=== PATIENT | female | born 1945 | race Caucasian/White ===

== ENCOUNTER 2016-02-05 09:31 | Inpatient (IN) | payer OTHER, MEDICARE ==
[~2016-02-05] VITALS: Ht 167.6 cm; Wt 59.9 kg
--- NOTE | 2016-02-05 10:17 | ED GI/GU/ABDOMINAL COMPLAINT ---
History of Present Illness General Chief Complaint: Abdominal Pain/Flank Pain Stated Complaint: UPPER FLANK PAIN Source: patient, family Exam Limitations: no limitations Vital Signs & Intake/Output Vital Signs & Intake/Output Vital Signs Date Time Temp Pulse Resp B/P Pulse O2 O2 Flow FiO2 Ox Delivery Rate 02/04 1359 97.8 82 18 118/68 98 Room Air 02/04 1121 99.2 94 19 111/63 96 Room Air 02/04 1114 99.0 02/04 0947 99.0 94 20 108/65 95 Room Air Room Air Allergies Coded Allergies: NO KNOWN ALLERGIES (12/12/10) Reconcile Medications Cefpodoxime Proxetil 200 MG TABLET 1 TAB PO BID PNEUMOCOCCAL PNEUMONIA Lisinopril 10 MG TABLET 1 TAB PO DAILY HTN (Reported) Pravastatin Sodium 10 MG TABLET 1 TAB PO DAILY CHOL (Reported) Sertraline HCl (Zoloft) 100 MG TABLET 1 TAB PO DAILY ANXIETY (Reported) Triage Note: PT "I HAD THE GI BUG SINCE SUNDAY, STILL HAVE DIARRHEA IT'S ONGOING, NOT EATING, LAST NIGHT STARTED WITH LEFT UPPER BACK PAIN, HURTS WHEN TAKING DEEP BREATH". 96% ON ROOM AIR WHILE TALKING. EX-SMOKER. Triage Nurses Notes Reviewed? yes ? N Is pt currently ? No Onset: Abrupt Duration: day(s): (1) Timing: multiple episodes today Quality/Severity: moderate Location: ABDOMEN, NECK, CHEST Activities at Onset: none No Modifying Factors: none HPI: This is a 70-year-old female presents to the ER chief complaint of multiple complaints including left back pain, left chest pain, headache and diarrhea. She states her was sick with GI bug and sinusitis earlier in the week. She is having some diarrhea. Last night she couldn't sleep all night long because when she would turn in bed she had pain worse in her back and chest. She looked up online addiction might have pleurisy. Also complains of a severe sharp pain on bilateral temples. Denies any cough. She does feel short of breath. Denies any vomiting. Appetite has been very poor. She has been drinking a lot of water at home which was advised to her by her neighbor. Denies any recent travel. Sick contact is her as previously stated. Past History Travel History Traveled to [place] past 21 day No Medical History Any Pertinent Medical History? 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 No Review of Systems Review of Systems Constitutional: Reports: malaise. Denies: chills, fever. EENTM: Reports: no symptoms. Respiratory: Denies: cough, short of breath, sputum production. Cardiovascular: Reports: chest pain. GI: Reports: abdominal pain, diarrhea, nausea. Genitourinary: Reports: no symptoms. Musculoskeletal: Reports: no symptoms. Skin: Reports: no symptoms. Neurological/Psychological: Reports: headache. Hematologic/Endocrine: Denies: bruising, bleeding, polyuria, polydipsia. Immunologic/Allergic: Denies: splenectomy. All Other Systems: Reviewed and Negative Physical Exam Physical Exam General Appearance: well developed/nourished, alert, awake, anxious, mild distress Head: atraumatic, normal appearance, tenderness (OVER BILATERAL TEMPLES) Eyes: Bilateral: normal appearance, PERRL, EOMI. Ears, Nose, Throat, Mouth: hearing grossly normal, moist mucous membrane Neck: normal inspection, supple, full range of motion Respiratory: normal breath sounds, chest non-tender, no respiratory distress Cardiovascular: regular rate/rhythm Peripheral Pulses: 2+ radial (R), 2+ radial (L) Gastrointestinal: normal bowel sounds, soft, non-tender Back: normal inspection, normal range of motion Extremities: normal range of motion Neurologic/Psych: no motor/sensory deficits, awake, alert, oriented x 3, normal gait Skin: intact, normal color, warm/dry Core Measures ACS in differential dx? No Severe Sepsis Present: No Septic Shock Present: No Progress Differential Diagnosis: AMI, pneumonia, pneumothorax, pleurisy, shingles, URI, PE, temporal arteritis Plan of Care: Orders Procedure Date/time Status Patient Data 02/04 1509 Active BASIC METABOLIC PANEL 02/04 1452 Active Admit to inpatient 02/04 1451 Active Intake & Output 02/04 1115 Active RAPID VIRAL INFLUENZA A 02/04 1037 Complete URINALYSIS 02/04 1037 Active TROPONIN LEVEL 02/04 1037 Complete WESTERGREN SED RATE 02/04 1037 Complete D-DIMER 02/04 1037 Complete COMPREHENSIVE METABOLIC PANEL 02/04 1037 Complete CBC WITHOUT DIFFERENTIAL 02/04 1037 Complete EKG 02/04 1037 Active Current Medications Sig/Jenny Start time Last Medication Dose Stop Time Status Admin Dexamethasone 4 MG DAILY 02/05 1000 UNVr (Decadron) Dextrose/Water 50 ML (D5W) Laboratory Tests 02/05/16 1105: Anion Gap 15, Estimated GFR > 60, BUN/Creatinine Ratio 27.1 H, Glucose 128 H, Calcium 8.9, Total Bilirubin 1.2, AST 20, ALT 33, Alkaline Phosphatase 97, Troponin I < 0.01, Total Protein 6.3, Albumin 3.6, Globulin 2.7, Albumin/ Globulin Ratio 1.3, D-Dimer 583 H, CBC w Diff MAN DIFF ORDERED, RBC 3.48 L, MCV 96.1, MCH 32.4 H, RDW 13.3, MPV 8.7, Gran % 92.4 H, Lymphocytes % 3.3 L, Monocytes % 4.1, Eosinophils % 0.1, Basophils % 0.1, Absolute Granulocytes 17.2 H, Segmented Neutrophils 82 H, Band Neutrophils 8 H, Absolute Lymphocytes 0.6 L, Lymphocytes 4 L, Monocytes 6, Absolute Monocytes 0.8 H, Absolute Eosinophils 0, Absolute Basophils 0, Normocytic RBCs VERIFIED, Normochromic RBCs VERIFIED, PUBS MCHC 33.7, ESR Westergren 128 H Diagnostic Imaging: Viewed by Me: CT Scan. Discussed w/RAD: CT Scan. Radiology Impression: EXAM TYPE: CAT - CTA CHEST EXAMINATION: CT ANGIOGRAM OF THE CHEST WITH CONTRAST (CT PULMONARY ANGIOGRAM FOR PE) CLINICAL INFORMATION: Left-sided pleuritic chest pain. Evaluate for pulmonary embolism. COMPARISON: CXR from 12/12/2010 TECHNIQUE: Prior to contrast administration, noncontrast localization images were obtained. Subsequently, multidetector volumetric imaging was performed from the thoracic inlet to below the diaphragms following the administration of 95 mL of Optiray 320 intravenous contrast. No contrast reaction reported. Sagittal, coronal, and MIP oblique sagittal reformatted images were obtained on the CT workstation, uploaded to PACS, and reviewed. Total exam dose-length product 328 mGy-cm FINDINGS: QUALITY OF STUDY/CONTRAST BOLUS: Satisfactory. PULMONARY ARTERIES: Pulmonary arteries are normal in caliber and there are no filling defects within the main, lobar or segmental vessels. THORACIC AORTA: Mild atherosclerotic calcification of the thoracic aorta without aneurysm or dissection. LUNGS AND PLEURA: Trachea and central airways are widely patent and normal in caliber. There is bronchial wall thickening in both lungs. There were several small (< 0.4 cm) noncalcified nodules in the right upper lobe (for example, image 104, series 4). Also, there are small nodules in both lower lobes, largest of the right lower lobe measuring 0.4 cm (image 349, series 4). There is a 0.3 cm calcified granuloma in the right lower lobe, as well (image 314, series 4). Within the left upper lobe and superior lingula extending along the major fissure, there is a broad area of consolidation with surrounding groundglass attenuation. This occupies an area measuring up to 5-6 cm AP and 10 cm long, and there is no central cavitary change. There is a trace left pleural effusion. MEDIASTINUM: The heart size is normal. No pericardial effusion. The thyroid gland and esophagus are unremarkable. No evidence of septal bowing or right heart strain. LYMPHATICS: No axillary lymphadenopathy. At the left hilum, a lymph node measures approximately 1 cm AP dimension (image 211, series 4). There are clustered subcentimeter sized lymph nodes within the mediastinum. UPPER ABDOMEN: Gallbladder is surgically absent. Adrenal glands are normal. There are a few scattered diverticula of the visualized colon. No reflux of contrast into the hepatic veins to suggest elevated right heart pressures. OSSEOUS STRUCTURES: No acute or suspicious osseous abnormality. There is an L2 hemangioma. IMPRESSION: 1. No pulmonary embolism. 2. Left upper lobe pneumonia and trace left pleural effusion. Recommend radiographic follow-up to ensure improvement/resolution of disease. 3. Small, scattered pulmonary nodules are likely postinflammatory, largest measuring up to 0.4 cm. Initial ED EKG: NSR Departure Departure Time of Disposition: 1451 Disposition: STILL A PATIENT Condition: Stable Clinical Impression Primary Impression: Hypokalemia Secondary Impressions: Pneumonia Referrals: CHRISTOPHER WALLACE MD (PCP/Family) Referred to [facility] as new patient No Departure Forms: Customer Survey General Discharge Information Prescriptions: Current Visit Scripts Cefpodoxime Proxetil 1 TAB PO BID #10 TAB Admission Note Spoke With: CANDIDO TAVERAS MD Documentation of Exam: Documentation of any treatments & extenuating circumstances including Concerns Regarding Discharge (functional status, medication knowledge or non-compliance, living conditions, etc.) that warrant an admission rather than observation: [IV ABX, PAIN CONTORL, POTASSIUM REPLETION, MONITOR ELECTROLYTES, MONITOR I/O, IV ABX, F/U BLOOD CULTURES]
[2016-02-05 11:33] LABS: ABSOLUTE BASOPHIL COUNT 0 /CUMM (0.0-0.2); ABSOLUTE EOSINOPHIL COUNT 0 /CUMM (0.0-0.7); ABSOLUTE GRANULOCYTE CT 17.2 /CUMM (1.4-6.5); ABSOLUTE LYMPH COUNT 0.6 /CUMM (1.2-3.4); ABSOLUTE MONOCYTE COUNT 0.8 /CUMM (0.10-0.60); BASOPHIL % 0.1 % (0.0-2.0); EOSINOPHIL % 0.1 % (0-5); GRANULOCYTE % 92.4 % (42.2-75.2); HEMATOCRIT 33.5 % (37-47); MEAN CORPUSCULAR HGB 32.4 PG (27.0-31.0); MEAN CORPUSCULAR HGB CONC 33.7 G/DL (33.0-37.0); MEAN CORPUSCULAR VOLUME 96.1 FL (81.0-99.0); MEAN PLATELET VOLUME 8.7 FL (7.4-10.4); PLATELET COUNT 182 /CUMM (130-400); RBC DISTRIBUTION WIDTH 13.3 % (11.5-14.5); RED BLOOD CELL CT 3.48 /CUMM (4.20-5.40); WHITE BLOOD CELL COUNT 18.6 /CUMM (4.8-10.8)
[2016-02-05] MEDS ORDERED: PRAVASTATIN SOD10 M2 PO (14:30)
[2016-02-05] MEDS ORDERED: LISINOPRIL10 M1 PO (14:30)
--- NOTE | 2016-02-05 14:43 | CT SCAN REPORT ---
EXAMINATION: CT ANGIOGRAM OF THE CHEST WITH CONTRAST (CT PULMONARY ANGIOGRAM FOR PE) CLINICAL INFORMATION: Left-sided pleuritic chest pain. Evaluate for pulmonary embolism. COMPARISON: CXR from 12/12/2010 TECHNIQUE: Prior to contrast administration, noncontrast localization images were obtained. Subsequently, multidetector volumetric imaging was performed from the thoracic inlet to below the diaphragms following the administration of 95 mL of Optiray 320 intravenous contrast. No contrast reaction reported. Sagittal, coronal, and MIP oblique sagittal reformatted images were obtained on the CT workstation, uploaded to PACS, and reviewed. Total exam dose-length product 328 mGy-cm FINDINGS: QUALITY OF STUDY/CONTRAST BOLUS: Satisfactory. PULMONARY ARTERIES: Pulmonary arteries are normal in caliber and there are no filling defects within the main, lobar or segmental vessels. THORACIC AORTA: Mild atherosclerotic calcification of the thoracic aorta without aneurysm or dissection. LUNGS AND PLEURA: Trachea and central airways are widely patent and normal in caliber. There is bronchial wall thickening in both lungs. There were several small (< 0.4 cm) noncalcified nodules in the right upper lobe (for example, image 104, series 4). Also, there are small nodules in both lower lobes, largest of the right lower lobe measuring 0.4 cm (image 349, series 4). There is a 0.3 cm calcified granuloma in the right lower lobe, as well (image 314, series 4). Within the left upper lobe and superior lingula extending along the major fissure, there is a broad area of consolidation with surrounding groundglass attenuation. This occupies an area measuring up to 5-6 cm AP and 10 cm long, and there is no central cavitary change. There is a trace left pleural effusion. MEDIASTINUM: The heart size is normal. No pericardial effusion. The thyroid gland and esophagus are unremarkable. No evidence of septal bowing or right heart strain. LYMPHATICS: No axillary lymphadenopathy. At the left hilum, a lymph node measures approximately 1 cm AP dimension (image 211, series 4). There are clustered subcentimeter sized lymph nodes within the mediastinum. UPPER ABDOMEN: Gallbladder is surgically absent. Adrenal glands are normal. There are a few scattered diverticula of the visualized colon. No reflux of contrast into the hepatic veins to suggest elevated right heart pressures. OSSEOUS STRUCTURES: No acute or suspicious osseous abnormality. There is an L2 hemangioma. IMPRESSION: 1. No pulmonary embolism. 2. Left upper lobe pneumonia and trace left pleural effusion. Recommend radiographic follow-up to ensure improvement/resolution of disease. 3. Small, scattered pulmonary nodules are likely postinflammatory, largest measuring up to 0.4 cm.
--- NOTE | 2016-02-05 15:12 | History & Physical ---
JUHI SANTAMARIA,[facility] 02/05/16 1512: General Information and HPI MD Statement: I have seen and personally examined ZHEN LEZAMA and documented this H&P. The patient is a 70 year old F who presented with a patient stated chief complaint of left sided pleuritic chest pain. Source of Information: patient Exam Limitations: no limitations History of Present Illness: This is a 70-year-old female with past medical history of hypertension, lipidemia and anxiety who comes to the ER with chief complaint of left-sided pleuritic chest pain . As per patient she has been feeling weak and lethargic since . She had some difficulty going to sleep that night, later followed by feeling feverish and having chills, since yesterday she has been having difficulty breathing stating that she has pain in her left shoulder blade area more pronounced when she takes a deep breath, denies any cough, sputum production. She also reports having watery diarrhea, dry heaves, nausea but no vomiting. Her had similar illnesses lately and she feels that she is having similar symptoms. She also complained of having severe headache, which has resolved now, she attributes it to not having been able to sleep well for the last couple of nights. It has been low. She denies any dizziness, chest pain, palpitation, any urinary complaints, any recent travels. She does not have any recent history of hospitalization, recent history of bronchitis, pneumonia, she does not have had her PNA of flu shot. She is an ex-smoker, drinks wine daily,no illicit drug abuse. Allergies/Medications Allergies: Coded Allergies: NO KNOWN ALLERGIES (12/12/10) Home Med list Lisinopril 10 MG TABLET 1 TAB PO DAILY HTN (Reported) Pravastatin Sodium 10 MG TABLET 1 TAB PO DAILY CHOL (Reported) Sertraline HCl (Zoloft) 100 MG TABLET 1 TAB PO DAILY ANXIETY (Reported) Compliance With Home Meds: GOOD Past History Travel History Traveled to [place] past 21 day No Medical History Blood Transfusion Hx: No Neurological: NONE EENT: NONE Cardiovascular: hypertension, hyperlipidemia Respiratory: asthma Gastrointestinal: GERD Hepatic: NONE Renal: NONE Musculoskeletal: NONE Psychiatric: NONE Endocrine: NONE Blood Disorders: NONE Cancer(s): NONE 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 Home Who Do You Live With? spouse Services at Home: None Primary Language: Algerian Smoking Status: Former Smoker ETOH Use: occasional use Illicit Drug Use: denies illicit drug use Functional Ability ADLs Independent: dressing, eating, toileting, bathing. Ambulation: independent IADLs Independent: shopping, housework, finances, food prep, telephone, transportation , medication admin. Review of Systems Review of Systems Constitutional: Denies: chills, fever. Cardiovascular: Denies: chest pain, palpitations. Respiratory: Reports: short of breath. Denies: cough, sputum production. Assessment/Plan Assessment: Patient is 70-year-old male with past medical history of hyperlipidemia, hyperlipidemia, anxiety events with with chief complaint of left-sided pleuritic chest pain. Vitals upon presentation temperature 99, respiratory rate 20, pulse 94, blood pressure 108/65, satting in high 90s on room air. WBC 18.6, hemoglobin 11.3, sodium 134, potassium 2.6 , creatnine 0.7 CTA ruled out pulmonary embolism but showed left upper lobe pneumonia We will admit patient on general medical floor and monitor for the following: Left-sided pleuritic chest pain: Likely secondary to community acquired pneumonia, WBC count 18.6, low-grade fever, CT chest showed evidence of left upper lobe pneumonia. Will start patient on ceftriaxone and azithromycin, will monitor vitals closely, will send urine for Legionella antigen and strep pneumo antigens, Tylenol for fever. Hypokalemia: Etiology most likely secondary to diarrhea, level upon presentation to 2.6, will repeat and check a.m. labs. History of hyperlipidemia: Continue home dose of pravastatin 10 mg daily History of hypertension: Continue home dose of amlodipine 10 mg daily Regular diet Mild pain pathway DVT prophylaxis with Lovenox Patient is full code Core Measures/Miscellaneous Acute Coronary Syndrome ACS Diagnosis: No Cerebrovascular Accident CVA/TIA Diagnosis: No Congestive Heart Failure CHF Diagnosis: No Venous Thromboembolism VTE Risk Factors: Acute medical illness, Age > 40 VTE Prophylaxis Ordered Inpt: [facility]- [facility] d/t: VTE low risk, No contraindications No VTE Pharm Prophylaxis d/t: No contraindications VTE Diagnosis: No VTE Type: NONE VTE Confirmed by (Test): NONE Severe Sepsis Severe Sepsis Present: No Septic Shock Septic Shock Present: No Miscellaneous Documentation Attending Case Discussed With: NITIN SANTAMARIA,PETER Guthrie Primary Care Physician: CHRISTOPHER WALLACE MD Patient sees these Specialists . Level of Patient Care: General Medicine PHILOMENA BEGUM 02/05/16 183: Past History Surgical History Surgical History: non-contributory Exam & Diagnostic Data Last 24 Hrs of Vital Signs/I&O Vital Signs Date Time Temp Pulse Resp B/P Pulse O2 O2 Flow FiO2 Ox Delivery Rate 02/05 0725 98.7 83 20 132/70 95 Room Air 02/05 0000 Room Air 02/04 2231 98.2 75 20 110/60 95 02/04 1917 98.1 86 20 110/68 97 Room Air 02/04 1845 98.5 84 18 112/68 98 Room Air Room Air 02/04 1614 98.4 86 18 108/67 97 Room Air Room Air 02/04 1359 97.8 82 18 118/68 98 Room Air 02/04 1121 99.2 94 19 111/63 96 Room Air 02/04 1114 99.0 02/04 0947 99.0 94 20 108/65 95 Room Air Room Air Intake & Output 02/05 1600 02/05 0800 02/05 0000 Intake Total 100 450 Output Total Balance 100 450 Intake, IV 250 Intake, Oral 100 200 Patient 132 lb Weight Assessment/Plan As Ranked By This Provider Problem List: 1. Pneumonia 2. Hypokalemia Resident Review Statement Resident Statement: examined this patient, discussed with biology intern, agreed with biology intern Other Findings: Patient is 70-year-old woman with past medical history significant for hypertension, anxiety and hyperlipidemia came to the emergency room with chief complaint of left-sided pleuritic chest pain especially under her left shoulder blade since . Patient admits that she was feeling weak and lethargic since Sunday but from she is experiencing severe pleuritic chest pain minimally relieved with ibuprofen. She denied fever or chills but admits that she was warm lately and also had poor appetite. She has off-and-on diarrhea for last couple of days and dry heaves but denies any vomiting. She denied any she feels. She denied chest pressure, epigastric pain, cough, sputum production, dizziness or vision changes. At the time of admission she had severe headache which was relieved by the time I interviewed her but was given prednisone for the fear of temporal arteritis as ESR was elevated. Patient contribute her headache to her anxiety and being sick lately. Vital signs on admission were temperature 99.0, pulse 94, respiratory 20, blood pressure 108 was 65, oxygen saturation 95% on room air. Labs on admission were WBC count 18.6 with bandemia, hemoglobin 11.3, hematocrit 33.5 and platelet count 182. Sodium 134 and potassium was 2.6 on admission and on repletion it came back to 3.2, BUN 19 and creatinine 0.7. The serum was 2.1 and negative troponins CTA was done that ruled out pulmonary embolism but showed left upper lobe pneumonia and trace left pleural effusion On physical examination patient was alert and oriented 3 Head atraumatic Neck supple Chest clear to auscultate with mildly reduced. Entry Heart sounds normal S1-S2 with no added sounds Abdomen soft with no organomegaly Extremities no edema or cyanosis noted Assessment and plan Patient is seen 10-year-old female with history of hypertension, hyperlipidemia and anxiety came with chief complaint of worsening weakness along with pleuritic chest pain since with leukocytosis and bandemia with positive imaging findings of left upper lobe infiltrate suggestive of community- acquired pneumonia. She was also found to have hypokalemic on admission most likely due to recent diarrhea. We will admit portion on general medical floor and will take care for the following problems Problem #1 left-sided pleuritic chest pain with leukocytosis most likely secondary to community-acquired pneumonia -Vitals signs every shift -We will trend WBC count and watch her for any fever -Will start patient on ceftriaxone and azithromycin -Will send urine for Legionella antigen and strep pneumo antigens -Adequate analgesia for pain relief Problem #2 hypokalemia most likely secondary to recent diarrhea -We will watch her potassium and magnesium levels and will replete accordingly Problem #3 history of hypertension and hyperlipidemia -Will continue her home medications Problem #4 history of anxiety -We'll continue her home medication Problem #5 elevated ESR most likely due to recent illness -Patient was given 60 mg of prednisone oral kidney are we will not continue at this time as temp oral arthritis is very unlikely and she is not complaining of headache anymore but we will watch her closely Patient is full code Pharmacological DVT prophylaxis CANDIDO TAVERAS MD 02/06/16 1011: Attending MD Review Statement Attending Statement Attending MD Statement: examined this patient, discuss w/resident/PA/QUALITY ASSURANCE ANALYST, agreed w/resident/PA/QUALITY ASSURANCE ANALYST, reviewed EMR data (avail), discussed with nursing, discussed with case mgmt Attending Assessment/Plan: See medical brief addendum note
[2016-02-05] MEDS ORDERED: ZOLOFT100 M1 PO (16:43)
--- NOTE | 2016-02-05 17:15 | PN- Att Addend ---
Attending Addendum Attending Brief Note 70-year-old female past medical history of hypertension and hyperlipidemia who is here with acute pleuritic chest pain, abdominal discomfort with diarrhea, leukocytosis with a left shift and bandemia and hypokalemia. A CTA shows a left upper lobe pneumonia. I will bring her into general medicine, give IV ceftriaxone and Azitho, blood cultures are obtained to treat for pneumonia. Replete her hypokalemia, watch her magnesium and replete her lites. Continue her lisinopril and statin, gently hydrate her put her on DVT prophylaxis and follow closely. Initially pt c/o rodriguez and sed rate was elevated so ED gave prednisone with worry of temporal arteritis. Pt has no rodriguez and no visual syx and I think high sed rate reflects ongoing infection with pneumnia. Will hold off on any more steroids and watch closely
--- NOTE | 2016-02-05 17:16 | Admission Certification ---
Admission Certification Certification Statement - As attending physician, I certify that at the time of - admission, based on clinical presentation, severity of - symptoms, need for further diagnostic testing and - therapeutic interventions, and risk of adverse outcomes - without in-hospital treatment, in my clinical assessment, - this patient requires an acute hospital stay for a minimum - of two nights or longer. I have also considered psychsocial - factors such as support system, advanced age, financial - issues, cognitive issues, and failed out-patient treatments, - past re-admission history, safety of patient, and lack of - compliance as applicable. Specific rationale supporting this admission is: pneumnia and profound hypokalemia
[2016-02-05 19:17] VITALS: BP 110/68
[2016-02-05 22:31] VITALS: BP 110/60
[2016-02-06 07:25] VITALS: BP 132/70
[2016-02-06 08:20] LABS: ABSOLUTE BASOPHIL COUNT 0 /CUMM (0.0-0.2); ABSOLUTE EOSINOPHIL COUNT 0 /CUMM (0.0-0.7); ABSOLUTE LYMPH COUNT 0.9 /CUMM (1.2-3.4); ABSOLUTE MONOCYTE COUNT 0.5 /CUMM (0.10-0.60); BASOPHIL % 0.4 % (0.0-2.0); EOSINOPHIL % 0 % (0-5); GRANULOCYTE % 85.8 % (42.2-75.2); HEMATOCRIT 34.4 % (37-47); MEAN CORPUSCULAR HGB 32.3 PG (27.0-31.0); MEAN CORPUSCULAR HGB CONC 33.3 G/DL (33.0-37.0); MEAN CORPUSCULAR VOLUME 97.1 FL (81.0-99.0); MEAN PLATELET VOLUME 9.5 FL (7.4-10.4); RBC DISTRIBUTION WIDTH 13.4 % (11.5-14.5); RED BLOOD CELL CT 3.55 /CUMM (4.20-5.40)
--- NOTE | 2016-02-06 08:35 | PN- Housestaff ---
PHILOMENA BEGUM 02/06/16 0835: Subjective Follow-up For: Left upper lobe pneumonia/community acquired pneumonia Complaints: no complaints Subjective: Patient was seen and examined this morning. She was sitting comfortably in bed without any complaints. She remained afebrile with normal vital signs. She denied cough, palpitations, any urinary complaints. She still complaining of pleuritic chest pain but is better than yesterday. She has 2 episodes of diarrhea since morning. Her potassium came back normal after repletion. Review of Systems Constitutional: Denies: chills, fever. Cardiovascular: Reports: chest pain. Denies: edema, orthopena. Respiratory: Denies: cough, orthopnea. Gastrointestinal: Reports: diarrhea. Genitourinary: Denies: dysuria. Objective Last 24 Hrs of Vital Signs/I&O Vital Signs Date Time Temp Pulse Resp B/P Pulse O2 O2 Flow FiO2 Ox Delivery Rate 02/05 0725 98.7 83 20 132/70 95 Room Air 02/05 0000 Room Air 02/04 2231 98.2 75 20 110/60 95 02/04 1917 98.1 86 20 110/68 97 Room Air 02/04 1845 98.5 84 18 112/68 98 Room Air Room Air 02/04 1614 98.4 86 18 108/67 97 Room Air Room Air 02/04 1359 97.8 82 18 118/68 98 Room Air 02/04 1121 99.2 94 19 111/63 96 Room Air 02/04 1114 99.0 02/04 0947 99.0 94 20 108/65 95 Room Air Room Air Intake & Output 02/05 1600 02/05 0800 02/05 0000 Intake Total 100 450 Output Total Balance 100 450 Intake, IV 250 Intake, Oral 100 200 Patient 132 lb Weight Physical Exam General Appearance: Alert, Oriented X3, Cooperative Cardiovascular: Normal S1, Normal S2, No Murmurs Lungs: Normal Air Movement Abdomen: Soft, No Tenderness Extremities: No Cyanosis, No Edema Current Medications: Current Medications Sig/Jenny Start time Last Medication Dose Route Stop Time Status Admin Acetaminophen 0 .STK-MED ONE 02/04 1110 DC IV Acetaminophen 1,000 MG ONCE ONE 02/04 1045 DC 02/04 N/A 1 UNIT IV 02/04 1059 1114 Azithromycin 500 MG DAILY@1600 02/05 1600 AC Sodium Chloride 250 ML IV Azithromycin 500 MG ONCE ONE 02/04 1445 DC 02/04 Sodium Chloride 250 ML IV 02/04 1544 1607 Ceftriaxone Sodium 1,000 MG DAILY@1600 02/05 1600 AC IV Ceftriaxone Sodium 0 .STK-MED ONE 02/04 1546 DC .ROUTE Ceftriaxone Sodium 1,000 MG ONCE ONE 02/04 1445 DC 02/04 IV 02/04 1446 1607 Dexamethasone 4 MG DAILY 02/05 1000 CAN Dextrose/Water 50 ML IV Enoxaparin Sodium 40 MG DAILY 02/04 1711 AC 02/04 SC 2036 Ibuprofen 400 MG ONCE ONE 02/05 0700 DC 02/05 PO 02/05 0701 0705 Lisinopril 10 MG DAILY 02/05 1000 AC PO Patient Medication 1 UNIT ONE NR 02/04 1730 DC Teaching ED 02/04 1800 Patient Medication 1 UNIT ONE NR 02/04 1715 DC Teaching ED 02/04 1730 Patient Medication 1 UNIT ONE NR 02/04 1715 DC Teaching ED 02/04 1730 Potassium Chloride 40 MEQ BID 02/04 2200 AC 02/04 PO 02/05 1001 2037 Potassium Chloride 10 MEQ ONCE ONE 02/04 1400 DC 02/04 IV 02/04 1401 1429 Potassium Chloride 0 .STK-MED ONE 02/04 1204 DC PO Potassium Chloride 10 MEQ ONCE ONE 02/04 1200 DC 02/04 IV 02/04 1201 1211 Potassium Chloride 40 MEQ ONCE ONE 02/04 1200 DC 02/04 PO 02/04 1201 1211 Pravastatin Sodium 10 MG DAILY 02/05 1000 AC PO Prednisone 0 .STK-MED ONE 02/04 1545 DC PO Prednisone 60 MG ONCE ONE 02/04 1445 DC 02/04 PO 02/04 1446 1607 Sertraline HCl 100 MG DAILY 02/05 1000 AC PO Sodium Chloride 1,000 ML BOLUS ONE 02/04 1200 DC 02/04 IV 02/04 1259 1211 Last 24 Hrs of Lab/Pratik Results Last 24 Hrs of Labs/Mics: Laboratory Tests 02/06/16 0615: Anion Gap 16, Estimated GFR > 60, BUN/Creatinine Ratio 40.0 H, Magnesium 2.3, CBC w Diff Pending, WBC Pending, RBC Pending, Hgb Pending, Hct Pending, MCV Pending, MCH Pending, RDW Pending, Plt Count Pending, MPV Pending, Gran % Pending, Lymphocytes % Pending, Monocytes % Pending, Eosinophils % Pending, Basophils % Pending, Absolute Granulocytes Pending, Absolute Lymphocytes Pending , Absolute Monocytes Pending, Absolute Eosinophils Pending, Absolute Basophils Pending, PUBS MCHC Pending 02/05/16 1602: Anion Gap 13, Estimated GFR > 60, BUN/Creatinine Ratio 27.1 H, Glucose 120 H, Calcium 8.7, Magnesium 2.1, Urine Color YEL, Urine Clarity CLEAR, Urine pH 6.5, Ur Specific [place] <= 1.005, Urine Protein NEG, Urine Ketones NEG, Urine Nitrite NEG, Urine Bilirubin NEG, Urine Urobilinogen 0.2, Ur Leukocyte Esterase NEG, Ur Microscopic EXAM NOT REQUIRED, Urine Hemoglobin NEG, Urine Glucose NEG 02/05/16 1105: Anion Gap 15, Estimated GFR > 60, BUN/Creatinine Ratio 27.1 H, Glucose 128 H, Calcium 8.9, Total Bilirubin 1.2, AST 20, ALT 33, Alkaline Phosphatase 97, Troponin I < 0.01, Total Protein 6.3, Albumin 3.6, Globulin 2.7, Albumin/ Globulin Ratio 1.3, D-Dimer 583 H, CBC w Diff MAN DIFF ORDERED, RBC 3.48 L, MCV 96.1, MCH 32.4 H, RDW 13.3, MPV 8.7, Gran % 92.4 H, Lymphocytes % 3.3 L, Monocytes % 4.1, Eosinophils % 0.1, Basophils % 0.1, Absolute Granulocytes 17.2 H, Segmented Neutrophils 82 H, Band Neutrophils 8 H, Absolute Lymphocytes 0.6 L, Lymphocytes 4 L, Monocytes 6, Absolute Monocytes 0.8 H, Absolute Eosinophils 0, Absolute Basophils 0, Normocytic RBCs VERIFIED, Normochromic RBCs VERIFIED, PUBS MCHC 33.7, ESR Westergren 128 H Microbiology 02/04 1602 URINE ROUT: Legionella Antigen - COMP 02/04 1602 URINE ROUT: Streptococcus pneumoniae Antigen (M - COMP STREP PNEUMO BACTERIAL AG Assessment/Plan Assessment: Patient is seen 10-year-old female with history of hypertension, hyperlipidemia and anxiety came with chief complaint of worsening weakness along with pleuritic chest pain since with leukocytosis and bandemia with positive imaging findings of left upper lobe infiltrate suggestive of community- acquired pneumonia. She was also found to have hypokalemic on admission most likely due to recent diarrhea. We will admit portion on general medical floor and will take care for the following problems Problem #1 left-sided pleuritic chest pain with leukocytosis most likely secondary to community-acquired pneumonia -Vitals signs every shift -We will trend WBC count and watch her for any fever -Will continue patient on ceftriaxone and azithromycin -Reginella urinary antigen came back negative, positive for strep pneumo bacterial antigen in urine -Adequate analgesia for pain relief Problem #2 hypokalemia most likely secondary to recent diarrhea -Resolved Problem #3 history of hypertension and hyperlipidemia -Will continue her home medications Problem #4 history of anxiety -We'll continue her home medication Problem #5 elevated ESR most likely due to recent illness -Patient was given 60 mg of prednisone oral kidney are we will not continue at this time as temp oral arthritis is very unlikely and she is not complaining of headache anymore but we will watch her closely Patient is full code Pharmacological DVT prophylaxis Problem List: 1. Pneumonia 2. Hypokalemia Pain Ratin Pain Location: Left-sided chest Pain Goal: Pain 4 or less Pain Plan: Tylenol Tomorrow's Labs & Rationales: CBC and BEP CANDIDO TAVERAS MD 02/06/16 1010: Attending MD Review Statement Attending Statement Attending MD Statement: examined this patient, discuss w/resident/PA/PAYROLL TAX SPECIALIST, agreed w/resident/PA/PAYROLL TAX SPECIALIST, reviewed EMR data (avail), discussed with nursing Attending Assessment/Plan: Patient is feeling much better. She is sitting up in a chair. Her room was changed because she couldn't sleep all night due to her roommate. She doesn't have any more abdominal pain. No headache or visual complaints. She is a 70- year-old with a history of hyperlipidemia and hypertension who is here with ammonia. It's a pneumococcal pneumonia the strep pneumo was positive. We'll continue the IV antibiotics and if she looks better questionable discharge in a.m.
[2016-02-06 10:02] LABS: PLATELET COUNT 194 /CUMM (130-400); WHITE BLOOD CELL COUNT 10.5 /CUMM (4.8-10.8)
--- NOTE | 2016-02-06 11:08 | Patient Discharge Instructions ---
Discharge Instructions General Discharge Information You were seen/treated for: STREP PNEUMONIA Special Instructions: PLEASE FOLLOW UP WITH YOUR PCP IN 1 WEEK OF DISCHARGE PLEASE TAKE MEDICATIONS PRESCRIBED Diet Continue normal diet: Yes Activity Additional ACTIVITY Info: TOLERATED Acute Coronary Syndrome Inclusion Criteria At DC or during hospital stay patient has or had the following: ACS DIAGNOSIS No Discharge Core Measures Meds if any: Prescribed or Continued at Discharge Meds if any: NOT Prescribed or Continued at Discharge Congestive Heart Failure Inclusion Criteria At DC or during hospital stay patient has or had the following: CHF DIAGNOSIS No Discharge Core Measures Meds if any: Prescribed or Continued at Discharge Meds if any: NOT Prescribed or Continued at Discharge Cerebrovascular accident Inclusion Criteria At DC or during hospital stay patient has or had the following: CVA/TIA Diagnosis No Discharge Core Measures Meds if any: Prescribed or Continued at Discharge Meds if any: NOT Prescribed or Continued at Discharge Venous thromboembolism Inclusion Criteria VTE Diagnosis No VTE Type NONE VTE Confirmed by (Test) NONE Discharge Core Measures - Per Current guidelines, there needs to be overlap - treatment for the first 5 days of Warfarin therapy. - If discharged on Warfarin prior to 5 days of - overlap therapy, the patient will need to be - assessed for post discharge needs including - *Post discharge parental anticoagulation - *Warfarin and/or parental anticoagulation education - *Follow up date to check INR post discharge At least 5 days overlap therapy as Inpatient No Meds if any: Prescribed or Continued at Discharge Note: Overlap Therapy is Warfarin and Anticoagulant Meds if any: NOT Prescribed or Continued at Discharge
[2016-02-06 14:30] VITALS: BP 116/64
[2016-02-06 15:37] VITALS: BP 100/60
[2016-02-06 22:45] VITALS: BP 110/68
[2016-02-07 06:30] VITALS: BP 128/64
[2016-02-07 07:44] LABS: ABSOLUTE BASOPHIL COUNT 0 /CUMM (0.0-0.2); ABSOLUTE EOSINOPHIL COUNT 0.1 /CUMM (0.0-0.7); ABSOLUTE GRANULOCYTE CT 5.8 /CUMM (1.4-6.5); ABSOLUTE LYMPH COUNT 1.7 /CUMM (1.2-3.4); ABSOLUTE MONOCYTE COUNT 1.1 /CUMM (0.10-0.60); BASOPHIL % 0.4 % (0.0-2.0); GRANULOCYTE % 66.5 % (42.2-75.2); HEMATOCRIT 35.3 % (37-47); MEAN CORPUSCULAR HGB 32.1 PG (27.0-31.0); MEAN CORPUSCULAR HGB CONC 33.3 G/DL (33.0-37.0); MEAN CORPUSCULAR VOLUME 96.5 FL (81.0-99.0); MEAN PLATELET VOLUME 8.9 FL (7.4-10.4); PLATELET COUNT 234 /CUMM (130-400); RBC DISTRIBUTION WIDTH 13.5 % (11.5-14.5); RED BLOOD CELL CT 3.67 /CUMM (4.20-5.40); WHITE BLOOD CELL COUNT 8.7 /CUMM (4.8-10.8)
--- NOTE | 2016-02-07 08:20 | PN- Housestaff ---
SPENCER SANTAMARIA,JIM 02/07/16 0820: Subjective Follow-up For: PNEUMONIA Subjective: pt was seen this morning, reports feeling well. still has cough but non productive. she has intermittent pain on the left side of the chest when she takes deep breath, which is relieved with motrin. she also complains of her loud roommate and would have preferred to have a private room. she is excited to go home. stable for discharge, will be discharged with 5 more days of cefpodoxime 200 mg bid. ros negative otherwise. Review of Systems Constitutional: Denies: chills, fever. EENTM: Denies: visual changes. Cardiovascular: Reports: chest pain. Denies: edema. Respiratory: Reports: cough. Denies: short of breath, sputum production. Gastrointestinal: Denies: abdominal pain, bloating, constipation, diarrhea. Objective Last 24 Hrs of Vital Signs/I&O Vital Signs Date Time Temp Pulse Resp B/P Pulse O2 O2 Flow FiO2 Ox Delivery Rate 02/06 0936 77 128/64 02/06 0630 98.4 77 20 128/64 96 Room Air 02/05 2245 98.1 83 20 110/68 97 Room Air 02/05 1537 97.9 79 18 100/60 97 02/05 1430 80 116/64 Physical Exam General Appearance: Alert, Oriented X3, Cooperative, No Acute Distress Skin: No Rashes, No Breakdown, No Significant Lesion HEENT: Atraumatic, PERRLA, EOMI Cardiovascular: Regular Rate, Normal S1, Normal S2, No Murmurs, Gallops, Rubs Lungs: Clear to Auscultation, Normal Air Movement, coughs with deep breath Abdomen: Normal Bowel Sounds, Soft, No Tenderness Neurological: Normal Speech Extremities: No Edema Current Medications: Current Medications Sig/Jenny Start time Last Medication Dose Route Stop Time Status Admin Acetaminophen 325 MG ONCE ONE 02/06 0745 DC 02/06 PO 02/06 0746 0801 Azithromycin 500 MG DAILY@02/05 1600 02/05 Sodium Chloride 250 ML IV 1626 Ceftriaxone Sodium 1,000 MG DAILY@02/05 1600 02/05 IV 1624 Enoxaparin Sodium 40 MG DAILY 02/04 1711 02/06 SC 0936 Ibuprofen 400 MG Q6P PRN 02/06 1030 02/06 PO 1032 Ibuprofen 400 MG ONCE ONE 02/05 1815 DC 02/05 PO 02/05 1816 1831 Lisinopril 10 MG DAILY 02/05 1000 AC 02/06 PO 0936 Pravastatin Sodium 10 MG DAILY 02/05 1000 AC 02/06 PO 0936 Sertraline HCl 100 MG DAILY 02/05 1000 AC 02/06 PO 0936 Last 24 Hrs of Lab/Pratik Results Last 24 Hrs of Labs/Mics: Laboratory Tests 02/07/16 0650: Anion Gap 13, Estimated GFR > 60, BUN/Creatinine Ratio 38.3 H, CBC w Diff NO MAN DIFF REQ, RBC 3.67 L, MCV 96.5, MCH 32.1 H, RDW 13.5, MPV 8.9, Gran % 66.5 , Lymphocytes % 19.6 L, Monocytes % 12.5 H, Eosinophils % 1.0, Basophils % 0.4 , Absolute Granulocytes 5.8, Absolute Lymphocytes 1.7, Absolute Monocytes 1.1 H , Absolute Eosinophils 0.1, Absolute Basophils 0, PUBS MCHC 33.3 Assessment/Plan Assessment: Patient is seen 10-year-old female with history of hypertension, hyperlipidemia and anxiety came with chief complaint of worsening weakness along with pleuritic chest pain since with leukocytosis and bandemia with positive imaging findings of left upper lobe infiltrate suggestive of community- acquired pneumonia. She was also found to have hypokalemic on admission most likely due to recent diarrhea. We will admit portion on general medical floor and will take care for the following problems Problem #1 left-sided pleuritic chest pain with leukocytosis most likely secondary to community-acquired pneumonia -Vitals signs every shift -We will trend WBC count and watch her for any fever -Discharged on cefpodoxime 200 mg BID for 5 more days -Reginella urinary antigen came back negative, positive for strep pneumo bacterial antigen in urine -Adequate analgesia for pain relief Problem #2 hypokalemia most likely secondary to recent diarrhea -Resolved Problem #3 history of hypertension and hyperlipidemia -Will continue her home medications Problem #4 history of anxiety -We'll continue her home medication Problem #5 elevated ESR most likely due to recent illness -Patient was given 60 mg of prednisone oral kidney are we will not continue at this time as temp oral arthritis is very unlikely and she is not complaining of headache anymore but we will watch her closely Patient is full code Pharmacological DVT prophylaxis Problem List: 1. Pneumonia Pain Ratin Pain Location: left sided chest pain Pain Goal: Pain 4 or less Pain Plan: motrin Tomorrow's Labs & Rationales: none DVT/Prophylaxis: mechanical, pharmacological CANDIDO TAVERAS MD 02/07/16 1031: Attending MD Review Statement Attending Statement Attending MD Statement: examined this patient, discuss w/resident/PA/ARCHITECTURAL ENGINEER, agreed w/resident/PA/ARCHITECTURAL ENGINEER, reviewed EMR data (avail), discussed with nursing Attending Assessment/Plan: Patient feels much better. She still has the pleuritic pain. She doesn't want an opiate and would rather take an NSAID for it. She is a 70-year-old with hypertension and hyperlipidemia who is here with a pneumococcal pneumonia. Her white count has come down nicely from 18-10-8. Her hypokalemia is resolved completely. She is switching PCPs and knows to call Dr. Jacob first thing in the morning to schedule a follow-up and was discharged on by mouth antibiotics to complete a total of 7 days.
[2016-02-07 09:36] VITALS: BP 128/64
[2016-02-07] MEDS ORDERED: CEFPODOXIME PR200 M2 PO (10:43)
--- NOTE | 2016-02-08 10:20 | Discharge Summary ---
Visit Information Visit Dates Admission Date: 02/05/16 Discharge Date: 02/07/16 Hospital Course Course Attending Physician: CANDIDO TAVERAS MD Primary Care Physician: MADISON SANTAMARIA,[place] Hospital Course: Patient is 70-year-old woman with past medical history significant for hypertension, anxiety and hyperlipidemia came to the emergency room with chief complaint of left-sided pleuritic chest pain especially under her left shoulder blade since . Patient admits that she was feeling weak and lethargic since Sunday but from she is experiencing severe pleuritic chest pain minimally relieved with ibuprofen. Vital signs on admission were temperature 99.0, pulse 94, respiratory 20, blood pressure 108 was 65, oxygen saturation 95% on room air. Labs on admission were WBC count 18.6 with bandemia, hemoglobin 11.3, hematocrit 33.5 and platelet count 182. Sodium 134 and potassium was 2.6 on admission and on repletion it came back to 3.2, BUN 19 and creatinine 0.7. The serum was 2.1 and negative troponins CTA was done that ruled out pulmonary embolism but showed left upper lobe pneumonia and trace left pleural effusion. Patient admitted onto the medical floor and following issues were addressed Problem #1 left-sided pleuritic chest pain with leukocytosis most likely secondary to community-acquired pneumonia Patient was admitted with left-sided pleuritic chest pain and leukocytosis with bandemia and found to have left upper lobe pneumonia most likely community- acquired and was treated with ceftriaxone and azithromycin IV first during hospital stay , urine antigen for strep pneumo came back positive, azithromycin was discontinued and was discharged on oral cefpodoxime 200 mg twice a day for 5 more days. Patient was progressively doing better and was discharged home with instruction to follow-up with her PCP as outpatient. Problem #2 hypokalemia most likely secondary to recent diarrhea Initially on admission she was found to have hypokalemia with potassium level of 2.6 most likely due to diarrhea and was repleted accordingly and on discharge her potassium level was 4.4. Problem #3 history of hypertension and hyperlipidemia Her statins and lisinopril was continued during hospital stay and was discharged on the same. Problem #4 history of anxiety Her home dose of sertraline was continued and discharged on the same dose Problem #5 elevated ESR most likely due to recent illness Initially on admission patient was complaining of severe headache and found to have elevated ESR most likely due to recent illness but was given prednisone in a fear of temporal arteritis but later on resolved and she was symptom-free during rest of the hospital stay. Patient is full code Pharmacological DVT prophylaxis Complications: none Allergies: Coded Allergies: NO KNOWN ALLERGIES (12/12/10) Significant Procedures: SERVICE DATE: 02/05/16-122 EXAM TYPE: CAT - CTA CHEST EXAMINATION: CT ANGIOGRAM OF THE CHEST WITH CONTRAST (CT PULMONARY ANGIOGRAM FOR PE) CLINICAL INFORMATION: Left-sided pleuritic chest pain. Evaluate for pulmonary embolism. COMPARISON: CXR from 12/12/2010 TECHNIQUE: Prior to contrast administration, noncontrast localization images were obtained. Subsequently, multidetector volumetric imaging was performed from the thoracic inlet to below the diaphragms following the administration of 95 mL of Optiray 320 intravenous contrast. No contrast reaction reported. Sagittal, coronal, and MIP oblique sagittal reformatted images were obtained on the CT workstation, uploaded to PACS, and reviewed. Total exam dose-length product 328 mGy-cm FINDINGS: QUALITY OF STUDY/CONTRAST BOLUS: Satisfactory. PULMONARY ARTERIES: Pulmonary arteries are normal in caliber and there are no filling defects within the main, lobar or segmental vessels. THORACIC AORTA: Mild atherosclerotic calcification of the thoracic aorta without aneurysm or dissection. LUNGS AND PLEURA: Trachea and central airways are widely patent and normal in caliber. There is bronchial wall thickening in both lungs. There were several small (< 0.4 cm) noncalcified nodules in the right upper lobe (for example, image 104, series 4). Also, there are small nodules in both lower lobes, largest of the right lower lobe measuring 0.4 cm (image 349, series 4). There is a 0.3 cm calcified granuloma in the right lower lobe, as well (image 314, series 4). Within the left upper lobe and superior lingula extending along the major fissure, there is a broad area of consolidation with surrounding groundglass attenuation. This occupies an area measuring up to 5-6 cm AP and 10 cm long, and there is no central cavitary change. There is a trace left pleural effusion. MEDIASTINUM: The heart size is normal. No pericardial effusion. The thyroid gland and esophagus are unremarkable. No evidence of septal bowing or right heart strain. LYMPHATICS: No axillary lymphadenopathy. At the left hilum, a lymph node measures approximately 1 cm AP dimension (image 211, series 4). There are clustered subcentimeter sized lymph nodes within the mediastinum. UPPER ABDOMEN: Gallbladder is surgically absent. Adrenal glands are normal. There are a few scattered diverticula of the visualized colon. No reflux of contrast into the hepatic veins to suggest elevated right heart pressures. OSSEOUS STRUCTURES: No acute or suspicious osseous abnormality. There is an L2 hemangioma. IMPRESSION: 1. No pulmonary embolism. 2. Left upper lobe pneumonia and trace left pleural effusion. Recommend radiographic follow-up to ensure improvement/resolution of disease. 3. Small, scattered pulmonary nodules are likely postinflammatory, largest measuring up to 0.4 cm. Disposition Summary Disposition Principal Diagnosis: Community-acquired pneumonia Additional Diagnosis: Hypertension Hyperlipidemia Discharge Disposition: home or self care Discharge Instructions General Discharge Information Code Status: Full Code Patient's Diet: Regular diet Patient's Activity: As tolerated with assistance Follow-Up Instructions/Appts: PLEASE FOLLOW UP WITH YOUR PCP IN 1 WEEK OF DISCHARGE PLEASE TAKE MEDICATIONS PRESCRIBED Medications at Discharge Discharge Medications: Continue taking these medications: Lisinopril (Lisinopril) 10 MG TABLET 1 Tablet ORAL DAILY Qty = 90 Comments: Last Taken: 02/07/16 Time: 9:30 AM Pravastatin Sodium (Pravastatin Sodium) 10 MG TABLET 1 Tablet ORAL DAILY Qty = 90 Comments: Last Taken: 02/07/16 Time: 9:30 AM Sertraline HCl (Zoloft) 100 MG TABLET 1 Tablet ORAL DAILY Comments: Last Taken: 02/07/16 Time: 9:30 AM Start taking the following new medications: Cefpodoxime Proxetil (Cefpodoxime Proxetil) 200 MG TABLET 1 Tablet ORAL TWICE DAILY Qty = 10 No Refills Copies To: CHRISTOPHER WALLACE MD Attending MD Review Statement Documenting Attending: NITIN SANTAMARIA,CANDIDO Becerra
== END 2016-02-07 11:42 | DRG 195 ==
LOC: ERH 09:31 → 2NA 14:51 → ERHI 14:51 → 2NA 18:56
PROVIDERS: Emergency Medicine; Internal Medicine; ADMIT Nuclear Medicine Nuclear Cardiology
DX: J18.8 Other pneumonia, unspecified organism (principal); I10 Essential (primary) hypertension; E87.6 Hypokalemia; E78.5 Hyperlipidemia, unspecified
CPT/HCPCS: 2NASP; 36415; 81003; 82436; 87449; 87450; 87804; 87804-59; 93005; 93010; 96365; 96366; 96375; 96376; J0131; J0456; J0696; J1100; J1650; J7040